=== PATIENT | male | born 1955 | race Caucasian/White ===

== ENCOUNTER 2020-05-14 09:57 | Observation (INO) | payer BC, SELFPAY ==
[2020-05-14] VITALS (9 sets, daily range): BP systolic 98–110; BP diastolic 63–78; PULSE 62–81; RESP 13–20; TEMP 36.4–36.7; O2SAT 96–100; BMI 21.2; BMI 20.5; BMI 20.6
--- NOTE | 2020-05-14 10:08 | EKG12_ITS ---
Test Reason : CP Blood Pressure : / mmHG Vent. Rate : 077 BPM Atrial Rate : 077 BPM P-R Int : 140 ms QRS Dur : 096 ms QT Int : 368 ms P-R-T Axes : 072 074 067 degrees QTc Int : 416 ms Normal sinus rhythm with sinus arrhythmia Normal ECG Confirmed by EDWIN WRIGHT, JUSTA ([id number]), continuity editor JUAN LUIS CHI ([id number]) on 05/16/2020 12:31:37 PM Referred By: GALI Confirmed By:JUSTA PINEDA MD
--- NOTE | 2020-05-14 10:08 | ED.VIS.GEN ---
History of Present Illness Chief Complaint: Chest Pain Informant: Patient Onset: Days Context: Gradual Onset Timing: Intermittent Current Severity: Moderate Maximum Severity: Moderate Narrative: The patient is a 64-year-old male with no known history of coronary vascular disease, who smokes but is on no daily medications, presents with a few days of intermittent chest pain. Patient states that he will get tightness across his chest. He states is not really associated with activity. He denies any fevers or chills. He denies any shortness of breath. He states sometimes, he will get a heaviness in his left arm. He is never had symptoms like this before. He denies family history of cardiac disease, but there is history of high cholesterol and hypertension. He himself only takes a daily multivitamin. He is never had a stress test or heart catheterization. Prior similar symptoms: No Recent Illness/Hospitalization: No Past Medical History - Allergies and Home Meds Allergies/Adverse Reactions: Allergies No Known Allergies Allergy (Verified 07/06/16 11:49) Primary Care Physician: Care Physician,No Primary [NON-STAFF] - Prior records reviewed: Yes Past Medical History: None Surgical History: noncontributory Smoking Status: Current every day smoker Review of Systems General: Denies: Chills, Fever, Sweats Eyes: Denies: Visual changes - bilaterally, Diplopia ENT: Denies: Rhinorrhea, Sore throat Cardiovascular: Reports: Chest pain. Denies: Palpitations Respiratory: Denies: Dyspnea, Cough, Dyspnea on exertion Gastrointestinal: Denies: Abdominal pain, Nausea, Vomiting, Diarrhea, Melena, Hematochezia Genitourinary: Denies: Dysuria, Hematuria, Frequency Musculoskeletal: Denies: Back pain, Extremity Pain Skin: Denies: Rash, Wounds Neurological: Denies: Headache, Weakness, Numbness Physical Exam Vital Signs/Narrative: Vital Signs Temp Pulse Resp BP Pulse Ox 05/14/20 10:00 98 F 81 13 109/78 99 Inital Vital Signs reviewed: Yes General: Well nourished, Well developed, No Acute Distress Head: Normocephalic, Atraumatic Eyes: Perrl, EOMI ENT: Moist mucous membranes, No rhinorrhea Neck: Supple, Nontender Cardiovascular: Regular rate, Regular rhythm, No murmurs Respiratory: No distress, CTA bilaterally, Chest nontender Abdomen: Soft, Nontender, Nondistended, Normal bowel sounds Back: Nontender, Normal Inspection Extremities: Nontender, No edema Skin: Normal color, No rash Neurological: Alert, Oriented x3, Cranial nerves II-XII grossly intact, Normal Strength, Normal Sensation Psychological: Normal affect, Normal Mood Diagnostic/Tx/Re-eval Abnormal Lab Results 05/14/20 05/14/20 05/14/20 10:20 10:20 10:20 WBC 9.6 RBC 4.78 Hgb 15.2 Hct 45.7 MCV 95.6 H MCH 31.8 MCHC 33.3 RDW Std Deviation 45.0 H RDW Coeff of Jameel 12.7 Plt Count 314 MPV 10.5 Immature Gran % (Auto) 0.400 Neut % (Auto) 58.6 Lymph % (Auto) 25.2 Mcnairy % (Auto) 8.2 Eos % (Auto) 6.2 H Baso % (Auto) 1.4 H Absolute Neuts (auto) 5.6 Absolute Lymphs (auto) 2.42 Nucleated RBC % 0 Sodium 138 Potassium 4.2 Chloride 106 Carbon Dioxide 31.0 Anion Gap 1 L BUN 16 Creatinine 1.09 Estim Creat Clear Calc 63.11 Est GFR (MDRD) Af Amer 88 Est GFR (MDRD) Non-Af 73 BUN/Creatinine Ratio 14.7 Glucose 103 Calcium 8.6 Troponin I < 0.015 B-Natriuretic Peptide 10.6 - Medical Decision Making EKG was done on patient arrival. It was sinus rhythm with sinus arrhythmia. There is no acute ischemia. Patient was basically pain-free on arrival. He is been having this intermittent pain for the past 4 days. There does seem to be an exertional component to it at times. He has a significant smoking history, but denies any other comorbidities. Screening labs including cardiac enzymes were negative. The patient does have a heart score of 4. At this point, I think that he would benefit from observation for cardiac risk stratification. He is comfortable with this plan. Impression 1. Chest pain ED Disposition - Plan for ED Patient: Referrals: Care Physician,No Primary [NON-STAFF] -
[2020-05-14 10:34] LABS: Absolute Lymphocyte Count 2.42 X10^3/uL (0.83-4.51); Absolute Neutrophil Count 5.6 X10^3/uL (2.0-7.7); Basophil# 0.13 X10^3/uL; Basophil% 1.4 % (0-1); Eosinophils% 6.2 % (0-5); Hematocrit 45.7 % (40-54); Hemoglobin 15.2 g/dL (13.0-16.5); Lymphocyte # 2.42 X10^3/ul (4.0); Lymphocyte % 25.2 % (19-41); Mean Corp Hgb Conc 33.3 g/dL (32-36); Mean Corpuscular Hgb 31.8 pg (27.0-32.0); Mean Corpuscular Volume 95.6 fL (80-94); Mean Platelet Vol. 10.5 fl (6.2-12.0); Monocyte# 0.79 X10^3/uL; Monocyte% 8.2 % (0-10); NRBC Flagged by Analyzer 0 % (0-5); Neutrophil # 5.63 X10^3/uL (2.7-7.7); Neutrophil % 58.6 % (47-70); Platelet Count 314 K/mm3 (150-450); RBC Distribution Width CV 12.7 % (11.6-14.6); Red Blood Count 4.78 M/mm3 (4.6-6.2); White Blood Count 9.6 K/mm3 (4.4-11.0)
[2020-05-14] MEDS: Aspirin 81 MG TAB.CHEW 324 MG PO (10:45)
[2020-05-14 10:54] LABS: Anion Gap 1 (5-15); BUN 16 mg/dL (7-18); BUN/Creat Ratio 14.7 RATIO (10-20); Calcium,Total 8.6 mg/dL (8.5-10.1); Chloride 106 mmol/L (98-107); Creatinine, Serum 1.09 mg/dL (0.70-1.30); EST Glomerular Filtration Rate 73 mL/min (>60); Est Glom Filt Rate - Afr Amer 88 mL/min (>60); Estimated Creatinine Clearance 63.11 ml/min; Glucose 103 mg/dL (74-106); Potassium 4.2 mmol/L (3.5-5.1); Sodium Level 138 mmol/L (136-145)
[2020-05-14 10:57] LABS: BNP,B-Type NATRIURETIC PEPTIDE 10.6 pg/mL (0-100)
--- NOTE | 2020-05-14 11:15 | RAD_ITS ---
STUDY: X-RAY CHEST REASON FOR EXAM: Male, 64 years old. Chest pain since , lt arm pain x several month. TECHNIQUE: Single AP portable view of the chest. COMPARISON: None. FINDINGS: EKG electrodes are seen. Hyperinflation. The lungs are clear. There is no demonstrated pleural abnormality. Normal size heart. Normal mediastinum and sandrita. Normal visualized pulmonary arteries. Normal visualized aortic arch and descending thoracic aorta. There are diffuse degenerative changes of the visualized thoracic spine. Normal visualized ribs, clavicles, and shoulders. There is no demonstrated abnormality of the visualized soft tissue structures of the upper abdomen. RAD/Chest 1 View (Portable) IMPRESSION: Hyperinflation. Electronically Signed: Clyde Sanders, at 11:30 EDT , Service support ,
--- NOTE | 2020-05-14 12:26 | EKG12_ITS ---
Test Reason : C.P. ADMIT Blood Pressure : / mmHG Vent. Rate : 065 BPM Atrial Rate : 065 BPM P-R Int : 162 ms QRS Dur : 092 ms QT Int : 370 ms P-R-T Axes : 071 068 062 degrees QTc Int : 384 ms Normal sinus rhythm with sinus arrhythmia Normal ECG No previous ECGs available Confirmed by VINICIO WRIGHT, CJ ([id number]), editorial clerk JUAN LUIS CHI ([id number]) on 05/16/2020 1:19:26 PM Referred By: MILES Confirmed By:CJ MOONEY MD
--- NOTE | 2020-05-14 18:35 | PCM.HP.STD ---
Problem List (1) Chest pain Status: Acute Qualifiers: Chest pain type: precordial pain Qualified Code(s): R07.2 - Precordial pain History of Present Illness Date of Admission: 05/14/20 Chief Complaint: Chest tightness The patient is a 64 year old M who was seen in the emergency room at [facility] with a chief complaint of chest discomfort which he describes as a tightness across the middle of his chest extending from one side of the chest to the other-these symptoms started last week. Patient states that he feels that it is a result of stress as he has gotten symptoms during stressful situations. Patient is vague about his chest discomfort and states that it can last all day long or it can last a few minutes. He denies that he has any radiation of the discomfort into his neck or down his arm, he denies any nausea or shortness of breath. Patient has no history of coronary artery disease, he does smoke. Work-up in the emergency room included labs which showed a normal troponin, chest x-ray was unremarkable, CBC and chemistry panel are unremarkable. EKG showed a normal sinus rhythm without evidence of ischemic changes. Patient was placed in observation status on PCU, cardiac enzymes will be cycled, he will have an exercise nuclear stress test tomorrow if enzymes remain normal. I do not feel the patient needs an echocardiogram. Past Medical History Allergies No Known Allergies Allergy (Verified 07/06/16 11:49) Home Medications: Ambulatory Orders Medication Instructions Recorded Multiple Vitamin 1 PO DAILY 05/14/20 Nitrofurantoin 1 tab PO DAILY 05/14/20 Surgical History: - - Prostate surgery-type unknown Psychiatric History: No pertinent psych hx Lives: With Family Smoking Status: Current every day smoker Tobacco Use: Cigarettes Alcohol: None Drugs: None - *Family History Maternal History Items: - - Hyperlipidemia Paternal History Items: Unknown Review of Systems Constitutional: Denies: Anorexia, Chills, Fever, Night Sweats, Malaise, Weakness, Weight Change, Fatigue Eyes: Denies: Blurred vision, Cataracts, Conjunctivae Inflammation, Double vision HEENT: Denies: Difficulty Swallowing, Dysphasia, Ear Pain, Eye Pain Cardiovascular: Reports: Chest Pain, Chest Tightness. Denies: Claudication, Chest Pressure, Edema, Heaviness, Orthopnea, Palpitations, Syncope Respiratory: Denies: Cough, Hemoptysis, Pleuritic Pain, Shortness of Breath, Shortness of breath at rest, Shortness of breath upon exertion, Sputum production Gastrointestinal: Denies: Abdominal Pain, Constipation, Diarrhea, Hematemesis, Hematochezia, Nausea, Melena, Vomiting Genitourinary: Denies: Dysuria, Frequency, Hematuria, Hesitancy, Urgency Musculoskeletal: Denies: Back Pain, Foot Pain, Hand Pain, Joint Pain, Joint stiffness, Joint swelling, Joint Tenderness, Leg Pain Skin: Denies: Dryness, Pruritis, Rash Neurological: Denies: Balance problems, Blurred vision, Double vision, Slurred speech, Difficulty swallowing, Focal weakness, Headaches, Numbness, Tingling Psychiatric: Denies: Anxiety, Depression, Homicidal Ideations, Suicidal Ideations Endocrine: Denies: Change in Body Habitus, Heat/ Cold Intolerance, Polydipsia, Polyuria Hematologic/ Lymphatic: Denies: Adenopathy, Anemia, Easy Bruising, Easy Bleeding, Petechiae, Purpura VTE Information - Inpt Only VTE Present on Admission: No VTE Mechan Device Prophylaxis: None VTE Pharm Prophylaxis ordered?: No Reason prophylaxis not ordered:: Treatment Not Indicated Patient Problems: Active and Suspected Problems Chest pain (Acute) - Physical Exam Vitals/I&O's: Vital Signs Temp Pulse Resp BP Pulse Ox 98.1 F 72 18 110/72 98 05/14/20 18:01 05/14/20 18:01 05/14/20 18:01 05/14/20 18:01 05/14/20 18:01 Oxygen Delivery Method Room Air Weight: 61.4 kg Body Mass Index (BMI) 20.5 Intake and Output for Last 24 Hours 05/12/20 05/13/20 05/14/20 23:59 23:59 23:59 Intake Total 650 / 650 Balance 650 / 650 General: Alert, Oriented x3, Cooperative, No apparent distress, Well developed, Well nourished HEENT: Atraumatic, PERRLA, EOMI, Normocephalic Oral: Moist Mucosa Neck: Supple, No JVD, Negative Carotid Bruits, Trachea Midline, Thyroid Normal Size and Texture Lungs: Clear to auscultation, Normal air movement, No rhonchi, No wheeze, No rales Cardiovascular: Regular rate, Regular Rhythm, Normal S1, Normal S2, No murmurs, PMI Normal, No rub noted, No Gallop Abdomen: Bowel Sounds Present, Soft, Non Tender, Non-Distended, No hernias noted Extremities: No clubbing, No cyanosis, No edema, Capillary Refill Less than 3 Seconds Skin: No rashes, No breakdown Musculoskeletal: No Tenderness to Palpation of Joints or Extremities Neurological: Cranial nerves II-XII grossly intact, Neuro grossly intact, Sensory exam intact to light touch and pain, Coordination normal Psych/Mental Status: Normal Affect, Appropriate, Alert and oriented to time, place, person, mood and affect Laboratory Results 05/14/20 10:20: WBC 9.6, RBC 4.78, Hgb 15.2, Hct 45.7, MCV 95.6 H, MCH 31.8, MCHC 33.3, RDW Std Deviation 45.0 H, RDW Coeff of Jameel 12.7, Plt Count 314, MPV 10.5, Immature Gran % (Auto) 0.400, Neut % (Auto) 58.6, Lymph % (Auto) 25.2, [place]oc[place]ontas % (Auto) 8.2, Eos % (Auto) 6.2 H, Baso % (Auto) 1.4 H, Absolute Neuts (auto) 5.6, Absolute Lymphs (auto) 2.42, Nucleated RBC % 0 05/14/20 10:20: Sodium 138, Potassium 4.2, Chloride 106, Carbon Dioxide 31.0, Anion Gap 1 L, BUN 16, Creatinine 1.09, Estim Creat Clear Calc 63.11, Est GFR (MDRD) Af Amer 88, Est GFR (MDRD) Non-Af 73, BUN/Creatinine Ratio 14.7, Glucose 103, Calcium 8.6, Troponin I < 0.015 05/14/20 10:20: B-Natriuretic Peptide 10.6 05/14/20 13:24: Troponin I < 0.015 05/14/20 16:55: Troponin I < 0.015 Current Medications Acetaminophen (Tylenol) 650 mg PO Q6H PRN PRN PRN Reason: Pain Score 1-10/Temp > 100.7 F Aspirin (Ecotrin) 81 mg PO DAILY@0800 YAZ Morphine Sulfate () 4 mg IV Q3H PRN PRN PRN Reason: Pain Score 6-10/10 Sodium Chloride () 10 - 40 ml IV UD PRN PRN Reason: SALINE FLUSH Temazepam (Restoril) 15 mg PO QHS PRN PRN PRN Reason: INSOMNIA Assessment/Plan All Active Problems Chest pain (Acute) #1 chest pain-atypical for coronary artery disease-patient was placed in observation status on PCU, cardiac enzymes will be cycled, he will undergo an exercise nuclear stress test tomorrow if enzymes remain normal. Lipid profile was ordered. OBSV E&M: 43255 Initial observation care L3
[2020-05-15 04:30] VITALS: PULSE 60
--- NOTE | 2020-05-15 05:55 | EKG12_ITS ---
Test Reason : AM EKG Blood Pressure : / mmHG Vent. Rate : 057 BPM Atrial Rate : 057 BPM P-R Int : 160 ms QRS Dur : 090 ms QT Int : 384 ms P-R-T Axes : 071 069 061 degrees QTc Int : 373 ms Sinus bradycardia Otherwise normal ECG When compared with ECG of 14-MAY-2020 10:02, MANUAL COMPARISON REQUIRED, DATA IS UNCONFIRMED Confirmed by ALBERT MARTINEZ ([id number]), photograph editor JUAN LUIS CHI ([id number]) on 05/17/2020 11:30:16 AM Referred By: YARA Confirmed By:ALBERT MARTINEZ
[2020-05-15 05:57] VITALS: BP 96/62; PULSE 65; RESP 18; TEMP 36.6; O2SAT 99
[2020-05-15] MEDS: Aspirin E.C. 81 MG Tablet PO (06:01)
[2020-05-15 07:21] LABS: Cholesterol 170 mg/dL (200); High Density Lipoprotein 32 mg/dL; Triglycerides 175 mg/dL; Very Low Density Lipoprotein 35 mg/dL (5-40)
[2020-05-15 09:55] VITALS: PULSE 58
[2020-05-15 10:42] VITALS: BP 109/66; PULSE 70; RESP 18; TEMP 36.6; O2SAT 94
[2020-05-15 10:51] VITALS: PULSE 80
--- NOTE | 2020-05-15 11:39 | STRESSREP_ITS ---
Stress Test Report Date: 05-15-2020 Procedure: Exercise tolerance test/imaging study Indications: Chest pain Consent: Per the patient Procedure: The patient exercised on a Abdulkadir protocol for 8 minutes and 30 seconds completing Stage II and 2 minutes and 30 seconds of Stage III achieving a peak heart rate of 134 bpm (84 % predicted maximal heart rate) with a peak blood pressure 120/74 mmHg and a peak MET capacity of 9 METs. The baseline ECG demonstrated sinus rhythm. The peak exercise ECG demonstrated somatic/motion artifact with no obvious ECG changes. There were no cardiac dysrhythmias pretest, during exercise, or recovery. The functional capacity was considered good. There was no complaint of chest discomfort during exercise or recovery. The examination was discontinued secondary to dyspnea and knee discomfort. Impression: 1. Technically adequate (percent predicted maximal heart rate greater than 85%) exercise tolerance test 2. Peak exercise ECG with somatic/motion artifact with no obvious ECG changes 3. There were no cardiac dysrhythmias pretest, during exercise, or recovery 4. Nuclear images pending Myocardial perfusion imaging study: Technique: The patient was injected with 11.0 mCi of technetium 99m Cardiolite and subsequently rest SPECT Cardiolite nuclear imaging was obtained in the horizontal long, vertical long, and short axis views. The patient exercised on a Abdulkadir protocol for 8 minutes and 30 seconds completing Stage II and 2 minutes and 30 seconds of Stage III achieving a peak heart rate of 134 bpm (84 % predicted maximal heart rate) with a peak blood pressure 120/74 mmHg and a peak MET capacity of 9 METs. The patient was injected with 33.2 mCi of technetium 99m Cardiolite and subsequently stress SPECT Cardiolite nuclear imaging was obtained in the horizontal long, vertical long, and short axis views. A gated Cardiolite study at peak stress was obtained. Interpretation: Rest and stress SPECT Cardiolite nuclear imaging status post realignment, normalization, and attenuation correction, demonstrates rest the appearance of subtle diminished tracer uptake near the apical areas which appears to normalize following stress. There is end systolic thickening and brightening. The gated Cardiolite study demonstrates myocardial thickening and inward wall motion. The reported LVEF is 67 %. Impression: 1. Rest and stress SPECT Cardiolite nuclear imaging demonstrate myocardial perfusion changes at rest which appear to normalize following stress appearing compatible shifting soft tissue attenuation/artifact with no myocardial perfusion changes considered diagnostic for associated stress-induced myocardial ischemia. 2. The gated Cardiolite study reports an LVEF of 67 %. This note was generated with [employer] software. It may contain incorrect words, spelling, and punctuation that were not noted in checking the note before signing.
--- NOTE | 2020-05-15 11:53 | DCINST_ITS ---
- Discharge Diagnoses Current Active Problems: Current Active and Chronic Problems Chest pain (Acute) You will use the following diet at home:: No restrictions Your liquids should be the consistency of: Regular/Thin Discharge Activity: Return to Normal Activity Weight Bearing Status: Full weight bearing Allergies/Adverse Reactions: Allergies No Known Allergies Allergy (Verified 07/06/16 11:49) Medications to take at Discharge Multiple Vitamin 1 PO DAILY 05/14/20 Nitrofurantoin 1 tab PO DAILY 05/14/20 Primary Care Physician: Care Physician,No Primary [NON-STAFF] - Please follow up with your Primary Care Physician in: in 2 weeks Test Results: Test results from this visit will be discussed in further detail at your follow- up appointment, if applicable.
--- NOTE | 2020-05-16 09:08 | PCM.DC.SUM ---
Discharge Date and Diagnosis Date of Admission: 05/14/20 Date of Discharge: 05/15/20 - Primary Discharge Diagnosis Acute Problems: #1 musculoskeletal chest pain Hospital Course and Treatment Operations: None Procedures: Nuclear stress test Summary of Care Provided: The patient is a 64 year old M was seen in the emergency room at [facility] with a chief complaint of intermittent chest pain over the past 2 weeks. He described the chest discomfort as a tightness across his chest, it seemed to occur when the patient was under stressful situations, he stated it could last all day long or last for just a few minutes. There is no radiation of the chest discomfort anywhere else. Patient's work-up in the emergency room included cardiac enzymes which were unremarkable, chest x-ray was unremarkable, and labs were unremarkable. EKG showed normal sinus rhythm without evidence of ischemic changes. Patient was placed in observation status on PCU, serial enzymes were performed and all the cardiac enzymes remain normal. Patient underwent a nuclear stress test (treadmill) on 05/15/2020-the stress test did not show any evidence of reversible ischemia. On 05/15/2020, patient was seen and examined: On examination he appeared in good health and spirits. Vital signs as documented. Skin warm and dry and without overt rashes. Neck without JVD, neck was supple, trachea midline, thyroid was normal. Lungs clear bilaterally, normal air movement was noted. Heart exam notable for regular rhythm, normal sounds and absence of murmurs, rubs or gallops. Abdomen unremarkable and without evidence of organomegaly, masses, or abdominal aortic enlargement. Bowel sounds are present, abdomen is not distended. Extremities nonedematous, no cyanosis was noted, no clubbing was noted. Neuro: Cranial nerves II through XII are grossly intact, no focal motor deficits were noted, sensation to light touch and pinprick intact, motor exam 5/5 throughout. Psych: Patient is alert and oriented x3, he does not appear anxious or depressed, he does not appear agitated. None 05/15/2020, patient was discharged home in stable condition. - Physical Exam Vitals/I&O's: Vital Signs Temp Pulse Resp BP Pulse Ox 97.9 F 80 18 109/66 94 05/15/20 10:42 05/15/20 10:51 05/15/20 10:42 05/15/20 10:42 05/15/20 10:42 Oxygen Delivery Method Room Air Weight: 61.4 kg Body Mass Index (BMI) 20.5 Intake and Output for Last 24 Hours 05/14/20 05/15/20 05/16/20 23:59 23:59 23:59 Intake Total 1150 / 1150 Balance 1150 / 1150 Discharge Activity: Return to Normal Activity Weight Bearing Status: Full weight bearing Home Medications: Medications to take at Discharge Multiple Vitamin 1 PO DAILY 05/14/20 Primary Care Physician: Care Physician,No Primary [NON-STAFF] - Please follow up with your Primary Care Physician in: in 2 weeks Disposition: Home Minutes spent on discharge:: 30 Patient Condition:: Stable Medical Necessity - Tobacco Use Smoking Status: Current every day smoker Tobacco Use: Cigarettes Meaningful Use Info Meaningful Use Diagnoses (Choose all that apply): None applicable OBSV E&M: 04325 Observation care discharge
== END 2020-05-15 11:55 | disposition home or self-care (01) ==
LOC: ED 10:43 → PCU 17:46
PROVIDERS: Admitting Provider Internal Medicine; Emergency Provider Emergency Medicine; PCP Student in an Organized Health Care Education/Training Program; Visit Provider Internal Medicine
DX: R07.89 Other chest pain (principal); F17.210 Nicotine dependence, cigarettes, uncomplicated
CPT/HCPCS: 36415; 71045; 78452; 80048; 80061; 83880; 84484; 85025; 93005; 93017; 99218; 99285; 99406; A9500; A4216; G0378

== ENCOUNTER 2022-02-23 15:11 | Emergency (ER) | payer BC, SELFPAY ==
[2022-02-23 15:12] VITALS: BP 119/79; PULSE 88; RESP 18; TEMP 36.6; BMI 22.0
[2022-02-23 15:20] VITALS: O2SAT 98
[2022-02-23] MEDS: Lidocaine 1% (20 ml mdv) 20 ML Vial INFILT (15:35)
--- NOTE | 2022-02-23 15:36 | CT_ITS ---
STUDY: CT BRAIN WITHOUT CONTRAST REASON FOR EXAM: Male, 66 years old. injury RADIATION DOSAGE (If Supplied By Facility): CTDIvol = ( 44.99 ) mGy, DLP = ( 829.85 ) mGycm TECHNIQUE: Transaxial CT imaging of the brain was performed without administration of intravenous contrast material. Individualized dose optimization techniques were used for this CT. COMPARISON: No relevant priors. FINDINGS: Normal soft tissue structures. Normal calvarium. Normal size ventricles and extra-axial spaces for the patient''s age. Normal white matter tracts of the cerebral hemispheres. Normal basal ganglia and thalami. Normal brainstem. Normal cerebellum. There is no intracranial hemorrhage. There are no findings of an acute ischemic infarction. Normal visualized paranasal sinuses. CT/Brain/Head without Contrast IMPRESSION: Normal unenhanced CT scan of the brain. Electronically Signed: Tanenr March MD at 16:08 EDT ,
--- NOTE | 2022-02-23 15:36 | CT_ITS ---
STUDY: CT FACIAL BONES WITHOUT CONTRAST REASON FOR EXAM: Male, 66 years old. injury RADIATION DOSAGE (If Supplied By Facility): CTDIvol = ( 29.38 ) mGy, DLP = ( 554.80 ) mGycm TECHNIQUE: The patient was scanned in a multi detector CT scanner. Sagittal and coronal images were reconstructed. Individualized dose optimization techniques were used for this CT. COMPARISON: None. FINDINGS: Linear area of subcutaneous emphysema involving the submental soft tissues consistent with laceration. No loculated fluid collection to suggest hematoma. Normal orbital schuler and orbital contents. Normal nasal bones and anterior nasal spine. Normal facial bones. Acute impacted fracture through the base of the left condyle of the mandible with anterior subluxation of the condyle in the temporomandibular joint. Normal visualized paranasal sinuses. CT/Sinus/Facial Bone IMPRESSION: Acute impacted fracture through the base of the left condyle of the mandible with anterior subluxation of the condyle within the temporomandibular joint. Electronically Signed: Tanner March MD at 16:27 EDT ,
--- NOTE | 2022-02-23 15:37 | EDS_ITS ---
HPI History of Present Illness Chief Complaint: Laceration Informant: patient Narrative Narrative: 66-year-old male presenting to the emergency room following a fall with head injury. Patient states he was mowing the lawn fell forward he struck his chin on the ground. No loss of conscious. He notes pain the bilateral TMJ area and a laceration to the chin. He also notes abrasions to the right hand. He notes a headache. Unknown last tetanus Tetanus Immunization: Unknown PFSH PFSH Home Medications Multiple Vitamin 1 tab PO DAILY 05/14/20 [History Last Taken Unknown] oxycodone-acetaminophen 1 tab PO Q6H PRN PRN 5 Days #20 tablet 02/23/22 [Rx Last Taken Unknown] Allergy/AdvReac Type Severity Reaction Status Date / Time No Known Allergies Allergy Verified 02/23/22 15:12 Social History (Updated 02/23/22 @ 15:[address] Dillan Anton, DO) service: Yes current gender identity: male Smoking Status: Current every day smoker tobacco type: cigarettes ROS ROS ED Constitutional Constitutional ED: Denies chills, fever(s) or weight loss Eyes Eyes: Denies change in vision or diplopia ENT ENT ED: Reports other; Denies ear pain, rhinorrhea or sore throat Cardiovascular Cardiovascular: Denies chest pain, orthopnea, palpitations or racing heartbeat Respiratory/Chest Respiratory/Chest: Denies cough, dyspnea or orthopnea Gastrointestinal Gastrointestinal: Denies abdominal pain, diarrhea, nausea or vomiting Genitourinary Genitourinary ED: Denies dysuria, hematuria or urinary frequency Musculoskeletal Musculoskeletal: Denies arthralgias or myalgias Integumentary Reports Abrasions and other Details: Chin laceration hand abrasions ; Denies abscess or rash Neurologic Neurologic: Reports headache(s); Denies weakness Psychiatric Psychiatric: Denies anxiety, depression, suicidal ideation or suicidal thoughts Endocrine Endocrinology: Denies polydipsia, polyphagia or polyuria Allergic/Immunologic Allergic/Immunologic ED: Denies mouth swelling, tongue swelling or urticaria EXAM Physical Exam Const Vital Signs: 02/23/22 15:12 02/23/22 15:20 Temperature 98 F Temperature Source Temporal Pulse Rate 88 Respiratory Rate 18 Blood Pressure 119/79 Blood Pressure Mean 92 Pulse Ox 98 Oxygen Delivery Method Room Air Room Air Positive well nourished and well developed General Appearance ED: well developed HEENT Reports normocephalic, head/scalp atraumatic, TM's clear and moist mucous membranes HEENT Narrative: 2 cm chin laceration. There is associated abrasion around it. He has tenderness at the bilateral TMJ and the angle of the mandibles. There is no dental trauma. Laceration is not through and through. trauma Tympanic Membrane ED: Yes TM's clear Eyes PERRL and EOMs intact bilaterally Neck no lymphadenopathy, supple and no JVD Resp normal respiratory effort and clear to auscultation bilaterally Cardio regular rate, regular rhythm and no murmurs GI normal to inspection, nondistended, normoactive bowel sounds and non-tender Palpation: soft Back/Spine no CVA tenderness and normal ROM Extremity General Extremety ED: Yes tenderness; Negative for edema General Extremity: Negative for edema Neuro oriented x3 and CN's II-XII intact bilaterally Sensorium / Orientation: alert Motor Exam: strength 5/5 throughout Psych mental status grossly normal Mood & Affect: Negative for depressed or tearful Skin no rashes or lesions noted Skin Narrative: Multiple superficial abrasions to the right hand MDM MDM MDM Narrative Medical decision making narrative: CT the brain was negative. CT of the facial bones demonstrated impacted fracture to the base of the left condyle. Please see radiology read for complete details. Patient received oxycodone. The chin was locally anesthetized using 1% lidocaine washed with Shur-Clens and explored. It was closed using 3 simple erupted 4-0 Ethilon sutures. Patient will be referred to maxillofacial surgery. Stitches will need to be removed in 5 days. Radiography Diagnostic Testing: Clinical Impression(s) from Imaging Studies Brain CT 02/23/22 15:36 IMPRESSION: Normal unenhanced CT scan of the brain. Electronically Signed: Tanner March MD at 16:08 EDT , Facial/Sinus 02/23/22 15:36 IMPRESSION: Acute impacted fracture through the base of the left condyle of the mandible with anterior subluxation of the condyle within the temporomandibular joint. Electronically Signed: Tanner March MD at 16:27 EDT , Discharge Plan Triage Chief Complaint: Laceration Other Complaint: Fall ED Provider: Dillan Anton Dx/Rx/DC Orders Clinical Impression: Fracture of mandible, Chin laceration Instructions: ED Laceration, Chin, Suture or Tape, ED Jaw Fracture Prescriptions: New oxycodone-acetaminophen [oxycodone-acetaminophen] 1 TABLET tablet 1 tab PO Q6H PRN PRN (Reason: pain) 5 Days Qty: 20 RF: 0 No Action Multiple Vitamin tablet 1 tab PO DAILY RF: 0 Primary Care Provider: Jake Hoang Referrals: Jake Hoang DO [Primary Care Provider] - 5 Days for suture removal Activity Restrictions/Additional Instructions: Please call to schedule appointment with Jim postdoctoral research fellow at [place] Office: [phone] Disposition Disposition: Home, Self Care
[2022-02-23] MEDS: Diphth,Pertuss(Acell),Tet Vac 0.5 ML Vial IM (15:53)
[2022-02-23] MEDS: oxyCODONE 5 MG Tablet 10 MG PO (16:39)
[2022-02-23 16:57] VITALS: BP 125/82; PULSE 85; RESP 16; O2SAT 99
== END 2022-02-23 17:02 | disposition home or self-care (01) ==
PROVIDERS: Emergency Provider Emergency Medicine; PCP Student in an Organized Health Care Education/Training Program; Visit Provider Emergency Medicine
DX: S01.81XA Laceration without foreign body of other part of head, initial encounter (principal); Y93.H9 Activity, other involving exterior property and land maintenance, building and construction; F17.210 Nicotine dependence, cigarettes, uncomplicated; S60.511A Abrasion of right hand, initial encounter; Y99.9 Unspecified external cause status; W19.XXXA Unspecified fall, initial encounter; Y92.096 Garden or yard of other non-institutional residence as the place of occurrence of the external cause; Z23 Encounter for immunization
CPT/HCPCS: 12011; 70450; 70486; 90471; 90715; 99283